=== PATIENT | female | born 1940 | race Hispanic/Latino ===

== ENCOUNTER 2016-11-01 15:54 | Outpatient (CLI) | payer MEDICARE | END 2016-11-01 15:55 | disposition home or self-care (01) | LOC: LAB 15:54 | PROVIDERS: ATTEND Internal Medicine Nephrology | DX: I10 Essential (primary) hypertension (principal); N28.1 Cyst of kidney, acquired; R31.9 Hematuria, unspecified | CPT/HCPCS: 87086 ==

== ENCOUNTER 2016-11-09 14:09 | Outpatient (CLI) | payer MEDICARE ==
--- NOTE | 2016-11-10 09:12 | Ultrasound Report ---
ULTRASOUND RENAL BILATERAL: HISTORY: Cyst of kidney. TECHNIQUE: Transabdominal ultrasound with color Doppler interrogation. COMPARISON: CT abdomen and pelvis with contrast dated 02/02/15. FINDINGS: The right kidney measures 9.1 x 4.9 x 5.5 cm. A 3.4 x 3.0 cm cyst with thin internal septation is noted in the mid right kidney. The left kidney measures 10.0 x 5.1 x 5.6 cm. A 1.7 x 1.4 cm simple cyst is noted in the [id number] left kidney. There is no evidence for mass, shadowing calculus, hydronephrosis or perinephric fluid. The cysts appear unchanged in size and contour since 02/02/15. The bladder is unremarkable. IMPRESSION: Bilateral renal cysts, as outlined above, which appear unchanged since the CT dated 02/02/15.
== END 2016-11-09 14:10 | disposition home or self-care (01) ==
LOC: US 14:09
PROVIDERS: ATTEND Internal Medicine Nephrology
DX: N28.1 Cyst of kidney, acquired (principal)
CPT/HCPCS: 76770

== ENCOUNTER 2019-05-22 09:28 | Outpatient (CLI) | payer MEDICARE ==
[2019-05-22 09:47] LABS: Hematocrit 43.5 % (30.3-42.9); Hemoglobin 14.5 gm/dl (10.1-14.3); Mean Corpuscular HGB Conc 33 % (30-34); Mean Corpuscular Volume 96 fl (79-97); Platelet Count 261 K/mm3 (140-440); Red Blood Count 4.55 M/mm3 (3.65-5.03); Red Cell Distribution Width 13.6 % (13.2-15.2)
[2019-05-22 10:13] LABS: Alanine Aminotransferase 13 units/L (7-56); Albumin 4.5 g/dL (3.9-5); BUN/Creatinine Ratio 27; Blood Urea Nitrogen 19 mg/dL (7-17); Calcium 9.8 mg/dL (8.4-10.2); Hemolysis Index 0
[2019-05-22 10:16] LABS: Erythrocyte Sedimentation Rate 15 mm/Hr (0-20)
== END 2019-05-22 09:29 | disposition home or self-care (01) ==
LOC: LAB 09:28
PROVIDERS: ATTEND Specialist
DX: G45.9 Transient cerebral ischemic attack, unspecified (principal); I10 Essential (primary) hypertension
CPT/HCPCS: 36415; 80053; 85027; 85652

== ENCOUNTER 2021-02-19 15:02 | Inpatient (IN) | payer MEDICARE ==
--- NOTE | 2021-02-19 15:56 | XRay Report ---
CHEST 1 VIEW 02/19/2021 2:43 PM INDICATION / CLINICAL INFORMATION: sob. COMPARISON: Left ribs series from 09/09/2014. FINDINGS: The patient is rotated to the left. SUPPORT DEVICES: None. HEART / MEDIASTINUM: No significant abnormality. LUNGS / PLEURA: Airspace opacities are seen along the mid/lower left lung. The lungs are otherwise cl ear. No significant pleural effusion. No pneumothorax. ADDITIONAL FINDINGS: No significant additional findings. IMPRESSION: Suspected left pneumonia. Continued radiographic follow-up to resolution is recommended. Signer Name: Ovidio Bentley MD Signed: 02/19/2021 3:52 PM Workstation Name: [id number]
[2021-02-19 16:01] LABS: Basophils % (Auto) 0.1 % (0.0-1.8); Eosinophils % (Auto) 0.1 % (0.0-4.3); Hematocrit 35.6 % (30.3-42.9); Hemoglobin 12.3 gm/dl (10.1-14.3); Lymphocytes # (Auto) 0.6 K/mm3 (1.2-5.4); Lymphocytes % (Auto) 8.2 % (13.4-35.0); Mean Corpuscular HGB Conc 34 % (30-34); Mean Corpuscular Volume 93 fl (79-97); Monocytes # (Auto) 0.3 K/mm3 (0.0-0.8); Monocytes % (Auto) 4.5 % (0.0-7.3); Platelet Count 256 K/mm3 (140-440); Red Blood Count 3.84 M/mm3 (3.65-5.03)
[2021-02-19 16:12] LABS: INR 1.04 (0.87-1.13)
[2021-02-19 16:13] LABS: Partial Thromboplastin Time 23.8 Sec. (24.2-36.6)
[2021-02-19 16:25] LABS: Alanine Aminotransferase 14 units/L (7-56); Albumin 2.9 g/dL (3.9-5); BUN/Creatinine Ratio 34; Bilirubin,Direct 0.2 mg/dL (0-0.2); Blood Urea Nitrogen 27 mg/dL (7-17); Hemolysis Index 8
[2021-02-19 16:49] LABS: ABG Base Excess -0.6 mmol/L (-2.0-3.0); ABG Methemoglobin 0.4 % (0.0-1.5); ABG Oxygen Saturation 84.3 % (95.0-99.0); ABG PCO2 34.2 mm Hg; ABG PH 7.444 pH Units (7.350-7.450); ABG PO2 45.9 mm Hg (80.0-90.0)
[2021-02-19] MEDS ORDERED: diphenhydrAMINE 50 MG/ML VIAL IV ONE (17:03)
--- NOTE | 2021-02-19 17:12 | Emergency Department Report ---
ED Shortness of Breath HPI - General Stated Complaint: KIMBERLY Time Seen by Provider: 02/19/21 15:20 Source: patient, EMS - History of Present Illness Initial Comments: 80-year-old female, history of COPD on 3 L O2, presents to ED with difficulty breathing over the last couple of days. States she has had to increase her O2 requirement. Patient also reports pain in her left chest. Patient reports she had "double pneumonia" in September, however she states she was never diagnosed with COVID-19. Patient states she is fully vaccinated against COVID-19. Patient states in December 2020 she was diagnosed with a left-sided pneumonia. It sounds as though there was some concern that this area in her chest may not be pneumonia and may possibly be a mass. Patient states her doctors decided against performing a biopsy because of the risk involved. EMS was called to the home today, patient has already received 5 breathing treatments prior to their arrival. Patient reports cough, no fever. She was not given another nebulizer treatment by EMS. Patient was placed on nonrebreather and transported to ED. 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 Juan WADSWORTH Complaint: shortness of breath -: days(s) (3) Severity: moderate Consistency: constant Improves With: bronchodilators Worsens With: nothing, exertion Known History Of: COPD Associated Symptoms: chest pain Treatments Prior to Arrival: oxygen, bronchodilator - Related Data Home Oxygen Therapy: Yes Home Oxygen Amount: 3 Liters Allergies Allergy/AdvReac Type Severity Reaction Status Date / Time iodine AdvReac Rash Verified 02/02/15 19:17 ED Review of Systems ROS: Stated complaint: KIMBERLY Other details as noted in HPI Comment: All other systems reviewed and negative Constitutional: denies: fever Respiratory: cough, shortness of breath Cardiovascular: chest pain ED Past Medical Hx - Past Medical History Hx Hypertension: Yes Hx Arthritis: Yes Additional medical history: TIA,BRAIN TUMOR - Surgical History Additional Surgical History: Shoulder surgery, elbow surgery, - Social History Smoking Status: Never Smoker ED Physical Exam - General General appearance: alert, in no apparent distress - Head Head exam: Present: atraumatic, normocephalic - Eye Eye exam: Present: normal appearance, EOMI - ENT ENT exam: Present: mucous membranes moist - Neck Neck exam: Present: normal inspection - Respiratory Respiratory exam: Present: normal lung sounds bilaterally. Absent: respiratory distress - Cardiovascular Cardiovascular Exam: Present: regular rate, normal rhythm - GI/Abdominal GI/Abdominal exam: Present: soft. Absent: distended, tenderness - Extremities Exam Extremities exam: Present: normal inspection. Absent: pedal edema, calf tenderness - Neurological Exam Neurological exam: Present: alert, oriented X3 - Psychiatric Psychiatric exam: Present: normal affect, normal mood - Skin Skin exam: Present: warm, dry, intact, normal color ED Course Vital Signs 02/19/21 02/19/21 02/19/21 15:26 15:31 15:45 Temperature Pulse Rate Respiratory Rate Blood Pressure 84/46 84/46 O2 Sat by Pulse 81 L 78 L 81 L Oximetry 02/19/21 02/19/21 02/19/21 16:01 16:15 16:31 Temperature Pulse Rate 99 H 102 H Respiratory 19 21 Rate Blood Pressure 99/56 110/63 102/62 O2 Sat by Pulse 81 L 87 89 Oximetry 02/19/21 02/19/21 02/19/21 16:45 17:01 17:15 Temperature Pulse Rate 102 H 98 H 100 H Respiratory 21 19 20 Rate Blood Pressure 114/58 101/64 110/65 O2 Sat by Pulse 76 L 88 86 Oximetry 02/19/21 02/19/21 02/19/21 17:31 18:07 18:15 Temperature Pulse Rate 101 H Respiratory 22 20 21 Rate Blood Pressure 109/62 109/62 124/63 O2 Sat by Pulse 87 87 Oximetry 02/19/21 02/19/21 02/19/21 18:31 18:45 19:01 Temperature 98.5 F Pulse Rate Respiratory 18 21 Rate Blood Pressure 115/68 115/68 O2 Sat by Pulse 86 89 Oximetry - Reevaluation(s) Reevaluation #1: 02/19/21 17:12 ABG done drawn while pt 6 L O2 NC. O2 84% on ABG. Will place on Venti mask. Reevaluation #2: 02/19/21 17:01 Pt states she has had CT scans in the past WITH contrast without any adverse reactions. ED Medical Decision Making - Lab Data Result diagrams: 02/19/21 15:28 02/19/21 15:28 - Radiology Data Radiology results: report reviewed, image reviewed - Medical Decision Making 80-year-old female, history of COPD, normally on 3 L O2, presents to ED with shortness of breath for the last couple of days. Patient states her O2 sats have been in the 70s on her usual 3 L O2. States she has had to increase her oxygen requirement. Here in the ED, ABG was done on 6 L and PO2 was 45, with O2 sats 84%. Patient switched to Ventimask. She is in no respiratory distress at this time. CTA was performed due to question of possible lung mass which could predispose to PE. However, CTA shows multifocal left-sided pneumonia of pulmonary embolism. Blood cultures drawn, Levaquin given. Patient will be admitted to hospitalist, Dr. Reyna, for further management. - Differential Diagnosis COPD, pneumonia, CHF, pleural effusion Critical Care Time: Yes Critical care time in (mins) excluding proc time.: 35 Critical care attestation.: If time is entered above; I have spent that time in minutes in the direct care of this critically ill patient, excluding procedure time. Critical Care Time: 35 min ED Disposition Clinical Impression: Acute on chronic respiratory failure with hypoxia, Pneumonia Disposition: [id number] OP ADMIT IP TO THIS HOSP Is pt being admited?: Yes Condition: Stable Instructions: Bacterial Pneumonia (ED) Referrals: PRIMARY CARE, [Primary Care Provider] - 3-5 Days Time of Disposition: 18:47
--- NOTE | 2021-02-19 18:26 | Cat Scan Report ---
CT angio chest INDICATION / CLINICAL INFORMATION: sob. TECHNIQUE: Axial CT images were obtained through the chest after injection of IV contrast. 3 plane MIP and/or 3D reconstructions were produced. All CT scans at this location are performed using CT dose reduction f or ALARA by means of automated exposure control. COMPARISON: None available. FINDINGS: PULMONARY ARTERIES: No pulmonary emboli. HEART: No significant abnormality. MEDIASTINUM / TACOS: Moderate hiatal hernia. No significant abnormality. LUNGS: Consolidation in the left upper lobe and left lower lobe. Patchy more multifocal consolidation in the right lobe. No pleural effusion. No pneumothorax. ADDITIONAL FINDINGS: None. UPPER ABDOMEN: No acute findings. SKELETAL STRUCTURES: No significant osseous abnormality. IMPRESSION: 1. No CT evidence for pulmonary embolism. 2. Multifocal consolidation most pronounced on the left most consistent with pneumonia. Signer Name: Elmo Perry MD Signed: 02/19/2021 6:21 PM Workstation Name: [id number]
--- NOTE | 2021-02-19 18:51 | History and Physical Report ---
History of Present Illness Chief complaint: I cannot breathe History of present illness: 80 YO Female with COPD, Chronic Respiratory Failure on 3 L O2, HTN, OA presents to ED for evaluation. Patient reports "I cannot breathe". I "had double pneumonia". Patient states that she has experienced shortness of breath over the past 3 months with intermittent improvement but with worsening symptoms over the past 2 weeks. Patient denies decreased exercise tolerance, shortness of breath, dry cough, generalized weakness, malaise, fatigue. Patient acknowledges worsening symptoms which do not respond to oral antibiotic therapy as well as increased nebulizer use. EMS was notified and upon arrival the patient was found to be in distress and subsequently transported to [facility] for further care and evaluation of the aforementioned symptoms. Patient was seen and evaluated in the emergency department. All lab and imaging studies reviewed. Patient found to have a pulse oximetry of 84% on room air. Patient is using accessory muscles to breathe and is unable to ambulate due to shortness of breath. Patient treated with submental oxygen without significant improvement in symptoms. Patient placed on nonrebreather oxygen 100% with mild improvement in symptoms. Patient is unable to speak in complete sentences due to shortness of breath. Patient uses verbal gestures to deny fever, chills, chest pain, palpitation, skin rash, recent ill contacts, or known exposure to COVID-19. Patient reports that she is fully vaccinated against COVID-19. Prior admission on 02/03/2015 reviewed. All medication listed at time of admission has been reconciled. Advanced care planning conducted in ED. Past History Past Medical History: arthritis, cancer, COPD, hypertension, stroke Past Surgical History: Other ( Shoulder surgery, elbow surgery, ) Social history: . denies: smoking, alcohol abuse Family history: hypertension Medications and Allergies Allergies Allergy/AdvReac Type Severity Reaction Status Date / Time iodine AdvReac Rash Verified 02/02/15 19:17 Active Meds: Active Medications Levofloxacin/Dextrose (Levaquin 750mg/150ml) 750 mg in 150 mls @ 100 mls/hr IV ONCE ONE; Protocol Stop: 02/19/21 20:09 Review of Systems Constitutional: fatigue, weakness, malaise, no weight loss, no weight gain, no fever Ears, nose, mouth and throat: no ear pain, no nose pain, no sinus pressure Breasts: no change in shape, no mass Cardiovascular: decreased exercise tolerance, no chest pain, no palpitations, no edema, no syncope Respiratory: cough, shortness of breath, dyspnea on exertion Gastrointestinal: no abdominal pain, no nausea, no vomiting, no constipation, no change in bowel habits Genitourinary Female: no pelvic pain, no flank pain, no dysuria, no stress incontinence, no post void dribbling, no urge incontinence Rectal: no pain, no incontinence, no bleeding Musculoskeletal: no neck stiffness, no neck pain, no shooting arm pain, no low back pain, no shooting leg pain Integumentary: no rash, no pruritis, no redness, no jaundice Neurological: no transient paralysis, no paralysis, no weakness, no parathesias, no numbness, no tingling Psychiatric: no anxiety, no memory loss, no sleep disturbances, no insomnia, no hypersomnia, no change in appetite, no suicidal ideation Endocrine: no cold intolerance, no polyphagia, no excessive thirst, no polyuria, no nocturia Hematologic/Lymphatic: no easy bruising, no easy bleeding Allergic/Immunologic: no urticaria, no wheezing Exam - Constitutional Vitals: Temp Pulse Resp BP Pulse Ox 101 H 20 109/62 87 02/19/21 17:31 02/19/21 18:07 02/19/21 18:07 02/19/21 17:31 General appearance: Present: mild distress - EENT Eyes: Present: PERRL ENT: hearing intact, clear oral mucosa - Neck Neck: Present: supple, normal ROM - Respiratory Respiratory effort: labored, accessory muscle use, stridor Respiratory: bilateral: diminished, rhonchi - Cardiovascular Heart Sounds: Present: S1 & S2. Absent: rub, click - Extremities Extremities: pulses symmetrical, No edema Peripheral Pulses: within normal limits - Abdominal General gastrointestinal: Present: soft, non-tender, non-distended, normal bowel sounds Female genitourinary: Present: normal - Integumentary Integumentary: Present: clear, warm, dry - Musculoskeletal Musculoskeletal: generalized weakness - Psychiatric Psychiatric: appropriate mood/affect, intact judgment & insight - Neurologic Neurologic: CNII-XII intact, moves all extremities HEART Score - HEART Score Troponin: Troponin T < 0.010 ng/mL (0.00-0.029) 02/19/21 15:28 Results - Labs CBC & Chem 7: 02/19/21 15:28 02/19/21 19:03 Labs: Abnormal lab results 02/19/21 02/19/21 02/19/21 Range/Units 15:28 15:28 15:28 Lymph % (Auto) 8.2 L (13.4-35.0) % Lymph # (Auto) 0.6 L (1.2-5.4) K/mm3 Seg Neutrophils % 87.1 H (40.0-70.0) % APTT 23.8 L (24.2-36.6) Sec. D-Dimer (0-234) ng/mlDDU ABG pO2 (80.0-90.0) mm Hg ABG O2 Saturation (95.0-99.0) % Oxyhemoglobin (95.0-99.0) % BUN 27 H (7-17) mg/dL Glucose 165 H (65-100) mg/dL Total Protein 5.3 L (6.3-8.2) g/dL Albumin 2.9 L (3.9-5) g/dL Lipase 12 L (13-60) units/L 02/19/21 02/19/21 Range/Units 16:00 16:40 Lymph % (Auto) (13.4-35.0) % Lymph # (Auto) (1.2-5.4) K/mm3 Seg Neutrophils % (40.0-70.0) % APTT (24.2-36.6) Sec. D-Dimer 235.23 H (0-234) ng/mlDDU ABG pO2 45.9 L (80.0-90.0) mm Hg ABG O2 Saturation 84.3 L (95.0-99.0) % Oxyhemoglobin 83.5 L (95.0-99.0) % BUN (7-17) mg/dL Glucose (65-100) mg/dL Total Protein (6.3-8.2) g/dL Albumin (3.9-5) g/dL Lipase (13-60) units/L Assessment and Plan - Patient Problems (1) Acute on chronic respiratory failure with hypoxia Current Visit: Yes Status: Acute Plan to address problem: Chest x-ray, CBC, CMP, CT scan chest, supplemental oxygen, pulse oximetry, nebulizer therapy, (2) Suspected 2019 novel coronavirus infection Current Visit: Yes Status: Acute Plan to address problem: Coronavirus protocol: IV antibiotic therapy, IV steroid therapy, coronavirus PCR ordered and is pending at time of admission, contact precautions, isolation precautions, prophylactic anticoagulation. (3) Pneumonia Current Visit: Yes Status: Acute Plan to address problem: Pneumonia protocol: Chest x-ray, CBC, CMP, supplemental oxygen, pulse oximetry, IV antibiotic therapy, blood culture. (4) DVT prophylaxis Current Visit: Yes Status: Acute Plan to address problem: SCD to bilateral lower extremities while in bed, prophylactic anticoagulation. (5) Advance care planning Current Visit: Yes Status: Acute Plan to address problem: Disease education conducted, care plan discussed, diagnoses discussed, prognosis discussed, patient is full code. Patient knowledges understanding and agreement with care plan, +30 minutes.
[2021-02-19] MEDS ORDERED: SODIUM CHLORIDE 0.9% 500 ML 500 ML IV ONE (18:53)
[2021-02-19] MEDS ORDERED: AZITHROMYCIN/NS 500 MG/250 ML 500 MG/250 ML BAG IV SCH (19:00)
[2021-02-19 19:30] LABS: C-Reactive Protein 8.7 mg/dL (0.00-1.30)
[2021-02-19] MEDS: cefTRIAXone/NS 2 GM/100 ML 2 GM/100 ML BAG IV SCH (21:55)
[2021-02-19] MEDS: HEPARIN 5,000 UNIT/1 ML VIAL SUB-Q SCH (22:08)
[2021-02-19] MEDS: methylPREDNISolone Sod Succinate 40 MG/1 ML INJ IV SCH (22:10)
[2021-02-19] MEDS: ASCORBIC ACID 500 MG TAB PO SCH (22:37)
[2021-02-19] MEDS: ZINC SULFATE 220 MG CAP PO SCH (22:37)
[2021-02-20] MEDS: methylPREDNISolone Sod Succinate 40 MG/1 ML INJ IV SCH (06:05)
[2021-02-20 08:42] LABS: Mean Corpuscular HGB Conc 34 % (30-34); Mean Corpuscular Volume 93 fl (79-97); Platelet Count 242 K/mm3 (140-440); Red Blood Count 3.78 M/mm3 (3.65-5.03)
[2021-02-20 09:04] LABS: Alanine Aminotransferase 14 units/L (7-56); Blood Urea Nitrogen 18 mg/dL (7-17); Calcium 8.8 mg/dL (8.4-10.2); Hemolysis Index 3
[2021-02-20 09:06] LABS: BUN/Creatinine Ratio 26
--- NOTE | 2021-02-20 09:10 | Progress Note ---
Assessment and Plan Assessment and plan: Acute on chronic hypoxic respiratory failure Sepsis. Patient meets criteria given the leukocytosis, tachycardia and diagnosis of pneumonia. Suspected COVID-19 pneumonia Multifocal pneumonia Hypertension Osteoarthritis 02/20/2021. Follow-up COVID-19 testing. Serial chest x-ray. Continue suppleme ntal oxygen to maintain sats greater than 92%. Continue IV antibiotics of ceftriaxone and azithromycin given the elevated procalcitonin. Pulmonary consultation pending. Consult ID as well. History Interval history: Patient remains hypoxic but no new issues overnight Hospitalist Physical - Constitutional Vitals: Temp Pulse Resp BP Pulse Ox 98.5 F 84 17 149/79 98 02/19/21 19:01 02/20/21 06:01 02/20/21 06:01 02/20/21 06:01 02/20/21 06:01 General appearance: Present: mild distress - EENT Eyes: Present: PERRL, EOM intact ENT: hearing intact, clear oral mucosa, dentition normal - Neck Neck: Present: supple, normal ROM - Respiratory Respiratory effort: normal Respiratory: bilateral: CTA - Cardiovascular Rhythm: regular Heart Sounds: Present: S1 & S2. Absent: gallop, rub - Extremities Extremities: no ischemia, No edema, Full ROM - Abdominal General gastrointestinal: soft, non-tender, non-distended, normal bowel sounds - Integumentary Integumentary: Present: clear, warm, dry - Neurologic Neurologic: CNII-XII intact, moves all extremities HEART Score - HEART Score Troponin: Troponin T < 0.010 ng/mL (0.00-0.029) 02/19/21 15:28 Results - Labs CBC & Chem 7: 02/20/21 08:25 02/19/21 19:03 Labs: Laboratory Last Values WBC 13.3 K/mm3 (4.5-11.0) H 02/20/21 08:25 RBC 3.78 M/mm3 (3.65-5.03) 02/20/21 08:25 Hgb 12.0 gm/dl (10.1-14.3) 02/20/21 08:25 Hct 35.0 % (30.3-42.9) 02/20/21 08:25 MCV 93 fl (79-97) 02/20/21 08:25 MCH 32 pg (28-32) 02/20/21 08:25 MCHC 34 % (30-34) 02/20/21 08:25 RDW 14.0 % (13.2-15.2) 02/20/21 08:25 Plt Count 242 K/mm3 (140-440) 02/20/21 08:25 Lymph % (Auto) 8.2 % (13.4-35.0) L 02/19/21 15:28 [place] % (Auto) 4.5 % (0.0-7.3) 02/19/21 15:28 Eos % (Auto) 0.1 % (0.0-4.3) 02/19/21 15:28 Baso % (Auto) 0.1 % (0.0-1.8) 02/19/21 15: Lymph # (Auto) 0.6 K/mm3 (1.2-5.4) L 02/19/21 15:28 [place] # (Auto) 0.3 K/mm3 (0.0-0.8) 02/19/21 15:28 Eos # (Auto) 0.0 K/mm3 (0.0-0.4) 02/19/21 15:28 Baso # (Auto) 0.0 K/mm3 (0.0-0.1) 02/19/21 15:28 Seg Neutrophils % Tick Inspector 02/20/21 08:25 Seg Neutrophils # 6.4 K/mm3 (1.8-7.7) 02/19/21 15:28 PT 13.5 Sec. (12.2-14.9) 02/19/21 15: INR 1.04 (0.87-1.13) 02/19/21 15:28 APTT 23.8 Sec. (24.2-36.6) L 02/19/21 15:28 D-Dimer 252.82 ng/mlDDU (0-234) H 02/19/21 Unknown ABG pH 7.444 pH Units (7.350-7.450) 02/19/21 16:40 ABG pCO2 34.2 mm Hg 02/19/21 16:40 ABG pO2 45.9 mm Hg (80.0-90.0) L 02/19/21 16:40 ABG HCO3 23.0 mmol/L (20.0-26.0) 02/19/21 16:40 ABG O2 Saturation 84.3 % (95.0-99.0) L 02/19/21 16:40 ABG O2 Content 14.3 (0.0-44) 02/19/21 16:40 ABG Base Excess -0.6 mmol/L (-2.0-3.0) 02/19/21 16:40 ABG Hemoglobin 12.2 gm/dl (12.0-16.0) 02/19/21 16:40 ABG Carboxyhemoglobin 0.6 % (0.0-5.0) 02/19/21 16:40 ABG Methemoglobin 0.4 % (0.0-1.5) 02/19/21 16:40 Oxyhemoglobin 83.5 % (95.0-99.0) L 02/19/21 16:40 FiO2 40 % 02/19/21 16:40 Sodium 138 mmol/L (137-145) 02/19/21 15:28 Potassium 4.3 mmol/L (3.6-5.0) 02/19/21 15:28 Chloride 103.1 mmol/L (98-107) 02/19/21 15:28 Carbon Dioxide 24 mmol/L (22-30) 02/19/21 15:28 Anion Gap 15 mmol/L 02/19/21 15:28 BUN 27 mg/dL (7-17) H 02/19/21 15:28 Creatinine 0.8 mg/dL (0.6-1.2) 02/19/21 15:28 Estimated GFR > 60 ml/min 02/19/21 15:28 BUN/Creatinine Ratio 34 % 02/19/21 15:28 Glucose 148 mg/dL (65-100) H 02/19/21 19:03 Calcium 9.0 mg/dL (8.4-10.2) 02/19/21 15:28 Ferritin 290.5 ng/mL (10.0-200.0) H 02/19/21 19:03 Total Bilirubin 0.90 mg/dL (0.1-1.2) 02/19/21 15:28 Direct Bilirubin 0.2 mg/dL (0-0.2) 02/19/21 15:28 Indirect Bilirubin 0.7 mg/dL 02/19/21 15:28 AST 13 units/L (5-40) 02/19/21 15:28 ALT 14 units/L (7-56) 02/19/21 15:28 Alkaline Phosphatase 54 units/L (35-129) 02/19/21 15:28 Lactate Dehydrogenase 283 units/L (91-180) H 02/19/21 19:03 Troponin T < 0.010 ng/mL (0.00-0.029) 02/19/21 15:28 C-Reactive Protein 8.70 mg/dL (0.00-1.30) H 02/19/21 19:03 NT-Pro-B Natriuret Pep 687.9 pg/mL (0-900) 02/19/21 15:28 Total Protein 5.3 g/dL (6.3-8.2) L 02/19/21 15:28 Albumin 2.9 g/dL (3.9-5) L 02/19/21 15:28 Albumin/Globulin Ratio 1.2 % 02/19/21 15:28 Lipase 12 units/L (13-60) L 02/19/21 15:28 Procalcitonin 6.19 ng/mL (<0.15) 02/19/21 19:03 Active Medications - Current Medications Current Medications: Generic Name Dose Route Start Last Admin Trade Name Freq PRN Reason Stop Dose Admin Ascorbic Acid 500 mg 02/19/21 22:00 02/19/21 22:37 Ascorbic Acid 500 Mg Tab PO 500 mg BID JOSE Administration Cholecalciferol 1,000 unit 02/20/21 10:00 Cholecalciferol (Vit D3) 1000 Unit (25 Mcg) Tab PO QDAY [facility] Heparin Sodium (Porcine) 5,000 unit 02/19/21 22:00 02/19/21 22:08 Heparin 5,000 Unit/1 Ml Vial SUB-Q 5,000 unit Q12HR JOSE Administration Ceftriaxone Sodium 2 gm in 100 mls @ 200 mls/hr 02/19/21 19:00 02/19/21 21:55 Rocephin/Ns 2 Gm/100 Ml IV 200 mls/hr Q24HR JOSE Administration Protocol Azithromycin 500 mg in 250 mls @ 250 mls/hr 02/19/21 19:00 02/19/21 22:38 Zithromax/Ns IV 250 mls/hr Q24HR JOSE Administration Protocol Methylprednisolone Sodium Succinate 40 mg 02/19/21 22:00 02/20/21 06:05 Methylprednisolone Sod Succinate 40 Mg/1 Ml Inj IV 40 mg Q8HR JOSE Administration Sodium Chloride 10 ml 02/19/21 22:00 02/19/21 22:10 Sodium Chloride 0.9% 10 Ml Flush Syringe IV 10 ml BID JOSE Administration Sodium Chloride 10 ml 02/19/21 18:53 Sodium Chloride 0.9% 10 Ml Flush Syringe IV PRN PRN LINE FLUSH Zinc Sulfate 220 mg 02/19/21 22:00 02/19/21 22:37 Zinc Sulfate 220 Mg Cap PO 220 mg BID JOSE Administration
[2021-02-20 09:23] LABS: Band Neutrophils # (Manual) 2.4 K/mm3; Total Cells Counted 100
[2021-02-20 09:24] LABS: Platelet Estimate Consistent w Auto; RBC Morphology Normal
[2021-02-20] MEDS ORDERED: CHOLECALCIFEROL (VIT D3) 1000 UNIT (25 mcg) TAB PO SCH (10:00)
[2021-02-20] MEDS: ASCORBIC ACID 500 MG TAB PO SCH (10:25)
[2021-02-20] MEDS: ZINC SULFATE 220 MG CAP PO SCH (10:25)
[2021-02-20] MEDS: cefTRIAXone/NS 2 GM/100 ML 2 GM/100 ML BAG IV SCH (10:36)
[2021-02-20] MEDS: HEPARIN 5,000 UNIT/1 ML VIAL SUB-Q SCH (10:36)
[2021-02-20 11:20] VITALS: BP 179/98
--- NOTE | 2021-02-20 12:23 | Consultation ---
History of Present Illness History of present illness: This is a patient with history of copd with chronic respiratory failure on supplemental o2 . She was recently dx w bilat pneumonia. Treated with some but not total improvement. She now has worsening sob for the past 2 weeks. SHe also has associated myalgia and arthalgia. She came in reporting that she couldnt breath. W/u showed lll pneumonia. She was admitted to [facility]. Reports some impro vement Past History Past Medical History: arthritis, cancer, COPD, hypertension, stroke Past Surgical History: Other ( Shoulder surgery, elbow surgery, ) Social history: . denies: smoking, alcohol abuse Family history: hypertension Medications and Allergies Allergies Allergy/AdvReac Type Severity Reaction Status Date / Time iodine AdvReac Rash Verified 02/02/15 19:17 NSAIDS (Non-Steroidal AdvReac Bleeding Verified 02/20/21 07:47 Anti-Inflamma Home Medications Medication Instructions Recorded Confirmed Last Taken Type Benzonatate [Tessalon Perles] 100 mg PO Q8HR 02/20/21 02/20/21 Unknown History Cholecalciferol (Vitamin D3) 2,000 unit PO QDAY 02/20/21 02/20/21 Unknown History [Vitamin D3 2,000 UNIT CAP] Cyanocobalamin (Vitamin B-12) 1,000 mcg PO DAILY 02/20/21 02/20/21 Unknown History [Vitamin B12] Fesoterodine Fumarate [Toviaz] 4 mg PO DAILY 02/20/21 02/20/21 Unknown History Gabapentin [Neurontin] 600 mg PO DAILY 02/20/21 02/20/21 Unknown History Loratadine [Claritin] 10 mg PO DAILY 02/20/21 02/20/21 Unknown History Meclizine [Antivert] 25 mg PO TID PRN 02/20/21 02/20/21 Unknown History Omeprazole Magnesium [PriLOSEC Otc] 20 mg PO DAILY 02/20/21 02/20/21 Unknown History Pravastatin [Pravachol] 20 mg PO QHS 02/20/21 02/20/21 Unknown History amLODIPine [Norvasc] 10 mg PO DAILY 02/20/21 02/20/21 Unknown History lisinopriL [Lisinopril] 10 mg PO DAILY 02/20/21 02/20/21 Unknown History predniSONE 10 mg PO QDAY 02/20/21 02/20/21 Unknown History Active Meds: Active Medications Ascorbic Acid (Ascorbic Acid 500 Mg Tab) 500 mg PO BID [facility] Last Admin: 02/20/21 10:25 Dose: Not Given Documented by: Cholecalciferol (Cholecalciferol (Vit D3) 1000 Unit (25 Mcg) Tab) 1,000 unit PO QDAY [facility] Last Admin: 02/20/21 10:25 Dose: Not Given Documented by: Heparin Sodium (Porcine) (Heparin 5,000 Unit/1 Ml Vial) 5,000 unit SUB-Q Q12HR [facility] Last Admin: 02/20/21 10:36 Dose: 5,000 unit Documented by: Ceftriaxone Sodium (Rocephin/Ns 2 Gm/100 Ml) 2 gm in 100 mls @ 200 mls/hr IV Q24HR [facility]; Protocol Last Admin: 02/20/21 10:36 Dose: 200 mls/hr Documented by: Azithromycin (Zithromax/Ns) 500 mg in 250 mls @ 250 mls/hr IV Q24HR [facility]; Protocol Last Admin: 02/19/21 22:38 Dose: 250 mls/hr Documented by: Methylprednisolone Sodium Succinate (Methylprednisolone Sod Succinate 40 Mg/1 Ml Inj) 40 mg IV Q8HR [facility] Last Admin: 02/20/21 06:05 Dose: 40 mg Documented by: Sodium Chloride (Sodium Chloride 0.9% 10 Ml Flush Syringe) 10 ml IV BID [facility] Last Admin: 02/20/21 10:25 Dose: 10 ml Documented by: Sodium Chloride (Sodium Chloride 0.9% 10 Ml Flush Syringe) 10 ml IV PRN PRN PRN Reason: LINE FLUSH Zinc Sulfate (Zinc Sulfate 220 Mg Cap) 220 mg PO BID [facility] Last Admin: 02/20/21 10:25 Dose: Not Given Documented by: Physical Examination Vital signs: Vital Signs Pulse Ox 81 L 02/19/21 15:26 General appearance: no acute distress, alert, other (on o2) Eyes: non-icteric ENT: oropharynx moist Effort: normal Ascultation: Bilateral: diminished breath sounds Cardiovascular: regular rate and rhythm Gastrointestinal: normoactive bowel sounds Extremities: no cyanosis Musculoskeletal: no deformities Gait: normal gait normal mental status, non-focal exam mood appropriate Results - Laboratory Findings CBC and BMP: 02/20/21 08:25 02/20/21 08:25 ABG ABG pH 7.444 pH Units (7.350-7.450) 02/19/21 16:40 ABG pCO2 34.2 mm Hg 02/19/21 16:40 ABG pO2 45.9 mm Hg (80.0-90.0) L 02/19/21 16:40 ABG O2 Saturation 84.3 % (95.0-99.0) L 02/19/21 16:40 PT/INR, D-dimer PT 13.5 Sec. (12.2-14.9) 02/19/21 15:28 INR 1.04 (0.87-1.13) 02/19/21 15:28 D-Dimer 252.82 ng/mlDDU (0-234) H 02/19/21 Unknown Abnormal lab findings: Abnormal Labs 02/19/21 02/19/21 02/19/21 15:28 15:28 15:28 WBC Lymph % (Auto) 8.2 L Lymph # (Auto) 0.6 L Seg Neutrophils % 87.1 H Seg Neuts % (Manual) Lymphocytes % (Manual) Seg Neutrophils # Man Lymphocytes # (Manual) APTT 23.8 L D-Dimer ABG pO2 ABG O2 Saturation Oxyhemoglobin BUN 27 H Glucose 165 H Ferritin Lactate Dehydrogenase C-Reactive Protein Total Protein 5.3 L Albumin 2.9 L Lipase 12 L 02/19/21 02/19/21 02/19/21 16:00 16:40 19:03 WBC Lymph % (Auto) Lymph # (Auto) Seg Neutrophils % Seg Neuts % (Manual) Lymphocytes % (Manual) Seg Neutrophils # Man Lymphocytes # (Manual) APTT D-Dimer 235.23 H ABG pO2 45.9 L ABG O2 Saturation 84.3 L Oxyhemoglobin 83.5 L BUN Glucose 148 H Ferritin Lactate Dehydrogenase 283 H C-Reactive Protein 8.70 H Total Protein Albumin Lipase 02/19/21 02/19/21 02/20/21 19:03 Unknown 08:25 WBC 13.3 H Lymph % (Auto) Lymph # (Auto) Seg Neutrophils % Seg Neuts % (Manual) 72.0 H Lymphocytes % (Manual) 4.0 L Seg Neutrophils # Man 9.6 H Lymphocytes # (Manual) 0.5 L APTT D-Dimer 252.82 H ABG pO2 ABG O2 Saturation Oxyhemoglobin BUN Glucose Ferritin 290.5 H Lactate Dehydrogenase C-Reactive Protein Total Protein Albumin Lipase 02/20/21 08:25 WBC Lymph % (Auto) Lymph # (Auto) Seg Neutrophils % Seg Neuts % (Manual) Lymphocytes % (Manual) Seg Neutrophils # Man Lymphocytes # (Manual) APTT D-Dimer ABG pO2 ABG O2 Saturation Oxyhemoglobin BUN 18 H Glucose 154 H Ferritin Lactate Dehydrogenase C-Reactive Protein Total Protein 5.7 L Albumin 3.0 L Lipase - Diagnostic Findings Chest x-ray: report reviewed, image reviewed CT scan - chest: report reviewed, image reviewed Assessment and Plan - Patient Problems (1) Acute on chronic respiratory failure with hypoxia Current Visit: Yes Status: Acute (2) Pneumonia Current Visit: Yes Status: Acute (3) Suspected 2019 novel coronavirus infection Current Visit: Yes Status: Acute (4) Dehydration Current Visit: No Status: Acute
--- NOTE | 2021-02-22 10:30 | Discharge Summary ---
Providers - Providers Date of Admission: 02/19/2021 Date of discharge: 02/20/21 02/19/21 18:54 Consult to Physician [CONS] Routine Comment: Consulting Provider: EULOGIO LOZANO Physician Instructions: Reason For Exam: Respiratory failure 02/20/21 09:08 Consult to Physician [CONS] Routine Comment: Consulting Provider: SCOTT DUNLAP Physician Instructions: Reason For Exam: pna Primary care physician: [employer] Hospitalization Reason for admission: pna Condition: Stable Hospital course: 80 YO Female with COPD, Chronic Respiratory Failure on 3 L O2, HTN, OA presents to ED for evaluation of dyspnea. Patient was seen and evaluated in the emergency department. All lab and imaging studies reviewed. Patient found to have a pulse oximetry of 84% on room air. Patient was using accessory muscles to breathe and was unable to ambulate due to shortness of breath. Patient treated with submental oxygen without significant improvement in symptoms. Patient placed on nonrebreather oxygen 100% with mild improvement in symptoms. Patient is unable to speak in complete sentences due to shortness of breath. Patient was admitted with diagnosis of acute on chronic respiratory failure, bilateral pneumonia, suspected COVID-19 pneumonia. The patient was admitted to IMCU and started on IV antibiotics. ID was consulted. Unfortunately, patient decided to leave AMA and son picked her up as well and was made aware. Dedicated discharge time 32 minutes. Disposition: [id number] LEFT AGAINST MED ADVICE Final Discharge Diagnosis (Prints w/discharge instructions): acute on chronic respiratory failure, bilateral pneumonia, suspected COVID-19 pneumonia Core Measure Documentation - Palliative Care Palliative Care/ Comfort Measures: Not Applicable - Core Measures Any of the following diagnoses?: none Exam - Constitutional Vitals: Temp Pulse Resp BP Pulse Ox 98.5 F 95 H 15 179/98 96 02/19/21 19:01 02/20/21 11:01 02/20/21 11:01 02/20/21 11:01 02/20/21 11:01 General appearance: Present: no acute distress, well-nourished - EENT Eyes: Present: PERRL ENT: hearing intact, clear oral mucosa - Neck Neck: Present: supple, normal ROM - Respiratory Respiratory effort: normal Respiratory: bilateral: CTA - Cardiovascular Heart Sounds: Present: S1 & S2. Absent: rub, click - Extremities Extremities: pulses symmetrical, No edema Peripheral Pulses: within normal limits - Abdominal General gastrointestinal: Present: soft, non-tender, non-distended, normal bowel sounds Female genitourinary: Present: normal - Integumentary Integumentary: Present: clear, warm, dry - Musculoskeletal Musculoskeletal: gait normal, strength equal bilaterally - Psychiatric Psychiatric: appropriate mood/affect, intact judgment & insight - Neurologic Neurologic: CNII-XII intact, moves all extremities Plan Follow up with: PRIMARY CARE, [Primary Care Provider] - 3-5 Days
--- NOTE | 2021-02-23 17:34 | Electrocardiograph Report ---
[facility] Test Date: 2021-02-19 Test Time: 23:18:45 Pat Name: JOSELO TORREZ Department: Room: [facility] Gender: F Senior Enlisted Advisor: VELMA : 1940 Requested By: YADY VERDE Order Number: [id number] Reading MD: Nay Rosenthal Measurements Intervals [place] Rate: 89 P: 0 RI: 161 QRS: -8 QRSD: 77 T: 3 QT: 370 QTc: 451 Interpretive Statements Sinus rhythm Poor data quality No previous ECG available for comparison Electronically Signed On 02-23-2021 17:34:26 EDT by Nay Rosenthal
== END 2021-02-20 14:27 | disposition left against medical advice (07) | DRG 871 ==
LOC: ED 15:02 → IMCU 18:53 → UNDOADMIN 18:54 → IMCU 18:54
PROVIDERS: ADMIT Internal Medicine; ATTEND Internal Medicine
PROC: 4A033R1 Measurement of Arterial Saturation, Peripheral, Percutaneous Approach (ICD-10-PCS; principal; 2021-02-19)
DX: A41.9 Sepsis, unspecified organism (principal); J18.9 Pneumonia, unspecified organism; J96.21 Acute and chronic respiratory failure with hypoxia; J44.0 Chronic obstructive pulmonary disease with (acute) lower respiratory infection; Z20.822 Contact with and (suspected) exposure to COVID-19; I10 Essential (primary) hypertension; M19.90 Unspecified osteoarthritis, unspecified site; E86.0 Dehydration; J44.9 Chronic obstructive pulmonary disease, unspecified; Z91.041 Radiographic dye allergy status; Z98.891 History of uterine scar from previous surgery; Z86.73 Personal history of transient ischemic attack (TIA), and cerebral infarction without residual deficits; Z82.49 Family history of ischemic heart disease and other diseases of the circulatory system; Z85.9 Personal history of malignant neoplasm, unspecified; Z63.4 Disappearance and death of family member; Z88.8 Allergy status to other drugs, medicaments and biological substances
CPT/HCPCS: 36415; 71045; 71275; 80048; 80053; 80076; 82728; 82803; 82947; 83615; 83690; 83880; 84145; 84484; 85007; 85025; 85379; 85610; 85730; 86140; 93005; 96365; 96375; G0378; J0456; J0696; J1644; J1956; J2920; J7040; Q9967; U0003